=== PATIENT | male | born 1955 ===

== ENCOUNTER 2024-07-26 05:07 | Day surgery (SDC) | payer OTHER ==
[2024-07-21 17:21] VITALS: BMI 28.8
[2024-07-26] MEDS ORDERED: ONDANSETRON 4 MG/2 ML VIAL IVPUSH PRN (10:29)
[2024-07-26] MEDS ORDERED: oxyCODONE HCL 5 MG TABLET PO PRN (10:29)
[2024-07-26] MEDS ORDERED: MIDAZOLAM HCL 2 MG/2 ML SINGLE DOSE VIAL ONE (14:30)
[2024-07-26] MEDS ORDERED: PROPOFOL 20 ML ONE (14:30)
[2024-07-26] MEDS ORDERED: LIDOCAINE HCL/PF 2% SDV 5ML VIAL ONE (14:31)
[2024-07-26] MEDS ORDERED: ONDANSETRON 4 MG/2 ML VIAL ONE (14:31)
[2024-07-26] MEDS ORDERED: DEXAMETHASONE SOD PHOSPHATE 4 MG/1 ML VIAL ONE (14:31)
[2024-07-26] MEDS ORDERED: ceFAZolin SODIUM 1 GM VIAL ONE (15:13)
[2024-07-26] MEDS: ceFAZolin SODIUM 1 GM VIAL IVPB ONE ×2 (15:15)
[2024-07-26] MEDS ORDERED: FUROSEMIDE 40 MG/4 ML INJECTABLE VIAL ONE (15:40)
[2024-07-26] MEDS: LACTATED RINGERS SOLUTION 1,000 ML IV SCH (16:09)
[2024-07-26 17:29] VITALS: RESP 18
[2024-07-26 19:59] VITALS: BP 141/72; PULSE 76; TEMP 97.7
== END 2024-07-26 19:15 | disposition home or self-care (01) ==
LOC: JASU-SURG 05:07
PROVIDERS: ATTEND Urology
PROC: 0V507ZZ Destruction of Prostate, Via Natural or Artificial Opening (ICD-10-PCS; principal; 2024-07-26 13:30)
DX: N40.1 Benign prostatic hyperplasia with lower urinary tract symptoms (principal); R39.12 Poor urinary stream
CPT/HCPCS: 94760